=== PATIENT | female | born 1930 | race Caucasian/White ===

== ENCOUNTER 2021-08-11 09:27 | Emergency (ER) | payer MEDICARE, MEDICAID ==
[~2021-08-11] VITALS: Ht 160 cm; Wt 53.1 kg
[~2021-08-11 09:27] MED LIST: [UNRECOGNIZED DRUG - REMARK]; [UNRECOGNIZED DRUG - REMARK]
[2021-08-11] MEDS ORDERED: MORPHINE SULFATE 4 MG/1 ML DISP.SYRIN IM ONE (09:45)
[2021-08-11] MEDS ORDERED: ONDANSETRON 4 MG/2 ML VIAL IM ONE (09:45)
[2021-08-11] MEDS ORDERED: ONDANSETRON 4 MG/2 ML VIAL ONE (09:56)
[2021-08-11] MEDS ORDERED: MORPHINE SULFATE 4 MG/1 ML DISP.SYRIN ONE (09:56)
--- NOTE | 2021-08-11 10:05 | NUR ---
Pt out of ER for Xray.
[2021-08-11] MEDS ORDERED: OXYCODONE/APAP 5-325 MG TABLET PO ONE (10:15)
--- NOTE | 2021-08-11 10:26 | NUR ---
Pt back from Xray, relaxing in bed.
--- NOTE | 2021-08-11 10:58 | NUR ---
Patient is resting comfortably in bed with eyes closed, NAD noted.
[2021-08-11] MEDS ORDERED: HYDR-3980 PO ×2 (11:27→11:43)
--- NOTE | 2021-08-11 11:53 | NUR ---
Patient discharged to home in stable condition. Written and verbal after care instructions given. Patient verbalizes understanding of instructions. Stressed follow up or return to ER for worsening s/s.
[2021-08-11 11:56] VITALS: BP 143/80
== END 2021-08-11 11:57 | disposition home or self-care (01) ==
LOC: ER 09:30
DX: S20.212A Contusion of left front wall of thorax, initial encounter (principal); W01.0XXA Fall on same level from slipping, tripping and stumbling without subsequent striking against object, initial encounter; Y92.89 Other specified places as the place of occurrence of the external cause; M85.88 Other specified disorders of bone density and structure, other site; E03.9 Hypothyroidism, unspecified; Z90.710 Acquired absence of both cervix and uterus; R03.0 Elevated blood-pressure reading, without diagnosis of hypertension
CPT/HCPCS: 71101; 96372 ×2; 99284; J2270; J2405; A4663

== ENCOUNTER → 2021-08-15 | Emergency (ER) | payer MEDICARE, OTHER ==
[~2021-08-15] MED LIST changes: +HYDR-3980 PO
--- NOTE | 2021-08-15 17:57 | NUR ---
CALLED PT, NOT IN THE WAITING ROOM OR OUTSIDE WAITING ROOM
== END | disposition left against medical advice (07) ==
LOC: ER 16:52
DX: Z53.21 Procedure and treatment not carried out due to patient leaving prior to being seen by health care provider (principal)